=== PATIENT | female | born 1955 | race Caucasian/White ===

== ENCOUNTER 2017-10-17 17:57 | Emergency (ER) | payer OTHER, SELFPAY ==
[2017-10-11 15:39] VITALS: TEMP 36.9
[2017-10-17 20:31] VITALS: BP 119/64; PULSE 68; RESP 18; TEMP 36.9; O2SAT 100; BMI 30.9
== END 2017-10-17 22:03 | disposition left against medical advice (07) ==
PROVIDERS: Family Provider Family Medicine; PCP Family Medicine
DX: S09.90XA Unspecified injury of head, initial encounter (principal)
CPT/HCPCS: 99281; 99282

== ENCOUNTER → 2017-10-18 15:04 | Outpatient (CLI) | payer OTHER, SELFPAY ==
[2017-10-17 20:31] VITALS: TEMP 36.9
--- NOTE | 2017-10-18 | DI.CT.S_ITS ---
PROCEDURE: CT HEAD/BRAIN WO CON INDICATIONS: FALL WITH LOSS OF CONCIOUSNESS TECHNIQUE: Noncontrast 4.5 mm thick angled axial sections acquired from the foramen magnum to the vertex, with coronal and sagittal reformats. For radiation dose reduction, the following was used: automated exposure control, adjustment of mA and/or kV according to patient size. COMPARISON: [facility], CT, HEAD WITHOUT CONTRAST, 06/26/2017, 14:22. FINDINGS: Image quality: Excellent. CSF spaces: Basal cisterns are patent. No extra-axial fluid collections. The ventricles are symmetric in size and shape. Brain: No intracranial bleeds or masses. There is cerebral volume loss for age, with resultant ventricular and sulcal prominence. There are periventricular and deep white matter chronic small vessel ischemic changes. There is intracranial internal carotid artery atherosclerosis. Skull and face: Calvarium and visualized facial bones appear intact, without suspicious lesions. Sinuses: Visualized sinuses and mastoids are clear. IMPRESSION: Normal head CT for age, without findings of acute intracranial hemorrhage or displaced calvarial fractures. Stable from prior. Dictated by: Elder Robledo M.D. on 10/18/2017 at 15:06 Approved by: Elder Robledo M.D. on 10/18/2017 at 15:06
== END ==
PROVIDERS: Family Provider Family Medicine; PCP Family Medicine; Visit Provider Family Medicine
DX: S06.9X9A Unspecified intracranial injury with loss of consciousness of unspecified duration, initial encounter (principal)
CPT/HCPCS: 70450

== ENCOUNTER 2017-12-28 13:30 | Day surgery (SDC) | payer OTHER, SELFPAY ==
--- NOTE | 2017-12-28 14:13 | PM.PREOP ---
Pre-operative Note Interval Note Pre-op Check: Yes History & Physical Reviewed by Physician Changes: No
[2017-12-28] MEDS: CATARACT EYE COMPOUND (10 DROPS/SYRINGE) 3 DROPS EYE-OP (14:19)
[2017-12-28] MEDS: PROPARACAINE 0.5% OPHTH SOL 2 DROPS EYE-OP (14:19)
[2017-12-28 14:22] VITALS: BP 108/72; PULSE 61; RESP 16; TEMP 36.1; O2SAT 99; BMI 32.4
[2017-12-28] MEDS: BALANCED SALT IRRIG SOLN NO.2 15 ML IRRIG.SOLN IRR (15:44)
[2017-12-28] MEDS: HYALURONATE SODIUM 10 MG/ML SYRINGE INJ (15:44)
[2017-12-28] MEDS: CARBACHOL 1.5 ML VIAL INJ (15:44)
[2017-12-28] MEDS: CHONDROIDTIN/SOD HYALURONATE 1.05 ML SYRINGE INTRAOCULA (15:44)
[2017-12-28] MEDS: LIDOCAINE 1% W/EPI INJ 20 ML INJ (15:44)
[2017-12-28] MEDS: OFLOXACIN 0.3% OPHTH 5 ML 2 DROPS EYE-RIGHT (15:45)
[2017-12-28] MEDS: NEOMYCIN/POLY/DEX OPHTH OINT 1 APPLIC EYE-RIGHT (15:45)
[2017-12-28] MEDS: MOXIFLOXACIN OPHTH DROPS 3 ML BOTTLE 2 DROPS INJ (15:45)
[2017-12-28] MEDS: PHENYLEPHRINE/LIDOCAINE 3ML VIAL (OR) EYE-OP (15:46)
[2017-12-28] MEDS: LIDOCAINE 2% 4 ML, BUPIVACAINE 0.5% (PF) 4 ML, HYALURONIDASE 150 UNIT INJ (15:46)
[2017-12-28] MEDS: TRIAMCINOLONE 50 MG/5 ML VIAL INJ (15:46)
[2017-12-28 16:07] VITALS: BP 110/79; PULSE 55; RESP 15; TEMP 36.2; O2SAT 100
--- NOTE | 2017-12-28 16:16 | PM.OP.1 ---
Operative Date/Time/Diagnoses Date of procedure: 12/28/17 Time of procedure: 15:07 Procedure & Clinicians Procedure: Date of service: Preoperative diagnoses: 1. Right nuclear sclerotic Cataract Postoperative diagnoses: 1. Cataract status post surgery with phacoemulsification and posterior chamber intraocular lens implant. Procedure: Phacoemulsification with posterior chamber intraocular lens implant Surgeon: Lani Pederson MD Complications: None Specimen: None Implant:ZCBOO+22.0D Blood loss: None Anesthesia: Retrobulbar with monitored standby Anesthesiologist: Owen Alba Description of procedure: Patient is a female year old with decreased vision due to cataract which is affecting activities of daily living. She wants surgery to improve vision. She was taken to the operating room and given IV sedation. A retrobulbar block insert consisting of 6 cc of 2% xylocaine without epinephrine mixed half and half with 0.5% Marcaine with 1 cc of hyaluronidase added is placed between the medial and lateral 1/3 of the inferior orbital rim. Lid akinesia is obtain with 1% xylocaine with epinephrine infiltrated along the lid margin. The eye is manually massaged for 30 sec, prepped using Betadine solution, and draped in the usual sterile fashion. Temporal approach was made, a 1 mm side-port incision was made at the 7:30 position. Phenylephrine 1.5% mixed with 1% xylocaine 0.2 cc was placed into the anterior chamber. Viscoat followed by Renny was then placed. A 2.6 mm clear incision with a 2.6 mm blade was placed at the 170 degree meridian. She had multiple pupillary strands which were lysed as needed. A 360 degree capsulorrhexis style capsulotomy was then performed with a cystitome needle on a Healon. Hydrodelineation and hydrodissection were performed. The phacoemulsification unit is introduced, and sculpting notice used to groove the central lens. It is then removed in chopping mode. Epi nucleus is removed with epinuclear mode and irrigation aspiration was used to remove the peripheral cortex. The posterior capsule is polished. The intraocular lens is selected, inspected, power confirmed, and placed in the posterior chamber. The pupil was constricted. The wound was strongly hydrated and tested for leaks, there was none and was left sutureless. Vigamox 0.1 cc was placed into the anterior chamber. Kenalog 0.2 cc was placed in the superior subconjunctival space. A drop of antibiotic and was placed and the eye was patched and shielded. The patient was stable and returned to the recovery room in excellent condition. Dictated by: Lani Pederson MD Copy to: [facility] Same procedure as scheduled: Yes
--- NOTE | 2017-12-28 16:22 | PM.PROC.1 ---
Procedures Date/Time Date of procedure: 12/28/17 Time of procedure: 16:22
== END 2017-12-28 16:25 | disposition home or self-care (01) ==
PROVIDERS: Family Provider Family Medicine; PCP Family Medicine; Visit Provider Ophthalmology
DX: H25.11 Age-related nuclear cataract, right eye (principal); F41.9 Anxiety disorder, unspecified; F43.10 Post-traumatic stress disorder, unspecified; I10 Essential (primary) hypertension
CPT/HCPCS: J2250; J2704; J3010; J3301; J3470

== ENCOUNTER 2020-07-04 10:47 | Emergency (ER) | payer MEDICARE, SELFPAY ==
[2020-07-04] VITALS (11 sets, daily range): BP systolic 103–124; BP diastolic 56–69; PULSE 56–62; RESP 15–19; TEMP 36.4; O2SAT 97–99; BMI 31.8
--- NOTE | 2020-07-04 11:03 | ED_ITS ---
HPI - General Adult General Chief complaint: Dizziness Stated complaint: dizzy Time Seen by Provider: 07/04/20 10:47 Source: patient Mode of arrival: Ambulatory Limitations: no limitations History of Present Illness HPI narrative: 64-year-old female sent over from her primary doctor's office for evaluation of approximately 1 week of dizziness. Primary doctor's note states that the patient was complaining of a room spinning sensation however however during my exam she describes as more of an unsteadiness. She denies any other associated symptoms except that she does state that she has been forgetful recently. She states she has been taking all her medications as directed. Has been eating and drinking without problems. Related Data Home Medications Medication Instructions Recorded Confirmed potassium chloride 10 meq PO QDAY #0 06/15/16 06/24/20 valacyclovir 500 mg PO QDAYP PRN #0 06/15/16 06/24/20 Calcium 500 + D (D3) 1 tab PO QDAY 10/11/17 06/24/20 acetaminophen 2 tab PO BID 10/11/17 06/24/20 cholecalciferol (vitamin D3) 2,000 unit PO DAILY 10/11/17 06/24/20 [Vitamin D3] xydousfqapog-xkpahjxr-qmierr 1 tab PO QDAY 10/11/17 06/24/20 [Multivitamin 50 Plus] L-theanine 100 mg PO DAILY 04/06/19 06/24/20 ggmaiwfs-cqrurkttv-zmonikbm 3.5 1 drop EYE-BOTH DAILY ml 04/06/19 06/24/20 mg/mL-10,000 unit/mL-0.1% eye drops metoprolol tartrate 25 mg tablet 25 mg PO DAILY 06/24/20 06/24/20 Previous Rx's Medication Instructions Recorded alprazolam 0.25 mg tablet 0.125 mg PO BEDTIME PRN #30 tab 06/24/20 bupropion HCl 150 mg 24 hr tablet, See Rx Instructions PO QAM #60 tab 06/24/20 extended release escitalopram oxalate 10 mg tablet 10 mg PO DAILY #30 tab 06/24/20 trazodone 50 mg tablet 50 mg PO BEDTIME PRN #30 tab 06/25/20 meclizine 25 mg PO TID PRN #14 tab 07/04/20 Allergies Allergy/AdvReac Type Severity Reaction Status Date / Time gabapentin [GABAPENTIN] AdvReac Mild DIZZY Verified 07/04/20 12:19 midazolam [From VERSED] AdvReac Mild DIDNT WORK Verified 07/04/20 12:19 FOR HER Review of Systems Constitutional Constitutional: Denies chills, Denies fatigue, Denies fever(s), Denies headache(s) and Denies weakness Eyes Eyes: Denies blurry vision, Denies change in vision and Denies loss of vision ENT Ears, Nose, Mouth, and Throat: Denies vertigo, Reports dizziness, Denies headache(s) and Reports disequilibrium Cardiovascular Cardiovascular: Denies chest pain, Denies rapid heart rate and Denies dyspnea Respiratory Respiratory: Denies dyspnea Gastrointestinal Gastrointestinal: Denies abdominal pain, Denies change in bowel habits, Denies nausea and Denies vomiting Genitourinary Genitourinary: Denies dysuria Genitourinary: Denies dysuria Musculoskeletal Musculoskeletal: Denies arthralgias, Denies myalgias and Denies tingling Integumentary/Breasts Skin/Breast: Denies lesions and Denies rash Neurologic Neurologic: Reports confusion, Denies vertigo, Reports dizziness, Denies headache(s), Denies loss of vision, Reports memory loss, Denies tingling, Reports disequilibrium and Denies weakness Psychiatric Psychiatric: Reports confusion and Reports memory loss Endocrine Endocrine: Denies fatigue Hematologic/Lymphatic On Anticoagulants: No Allergic/Immunologic Allergic/Immunologic: Denies urticaria Patient History Medical History Depression Gastric regurgitation Hypertension Social History household members: spouse Smoking Status: Never smoker Smoking Status: Never smoker alcohol intake frequency: holidays/special occasions only Substance Use Type: does not use Exam Initial Vital Signs Initial Vital Signs: Vital Signs Temperature 97.6 F 07/04/20 10:52 Pulse Rate 59 L 07/04/20 10:52 Respiratory Rate 15 07/04/20 10:52 Blood Pressure 124/69 07/04/20 10:52 Pulse Oximetry 97 07/04/20 10:52 Const General: cooperative and comfortable Limitations: mental status not altered HENMT Head: normal to inspection and normocephalic Resp Effort & Inspection: normal respiratory effort Auscultation: clear to auscultation bilaterally Cardio Rate: regular rate Rhythm: regular rhythm GI Inspection: non-distended Palpation: soft Skin Lesions: no lesions Rashes: no rashes Neuro General: patient alert and patient awake Cranial Nerves: CN's II-XI intact bilaterally Cognition: normal cognition Speech: speech normal Gait: normal gait Extrem General: capillary refill normal Psych Appearance: grossly normal and well kempt Scores NIH Stroke Scale Level of Conciousness: Alert, keenly responsive Ask month/age: Answers both questions correctly. Open/close eyes, close hand: Performs both tasks correctly Best gaze horizontal: Normal Visual nova: No visual loss Facial palsy: Normal symetrical movement Left arm drift: No drift for full 10 sec Right arm drift: No drift for full 10 sec Left leg drift: No drift for full 5 sec Right leg drift: No drift for full 5 sec Limb ataxia: Absent Sensory on face/arms/legs: Normal, no sensory loss Best language: No aphasia, normal Dysarthria: Normal Extinction or inattention: No abnormality Total NIH Stroke scale score: 0 Course Orders Ordered: ED Orders 07/04/20 11:00 Complete Blood Count AUTO DIFF Stat Comprehensive Metabolic Panel Stat Lipase Stat Troponin & CK Cardiac Panel Stat 07/04/20 11:04 CT head/brain wo con Stat 07/04/20 11:05 EKG-12 Lead Stat Discontinued Medications Sodium Chloride (Normal Saline 0.9%) 1,000 mls @ 1,000 mls/hr IV BOLUS ONE Stop: 07/04/20 11:51 Last Admin: 07/04/20 11:08 Dose: 1,000 mls/hr Documented by: SHALOM Meclizine HCl (Meclizine Hcl 12.5 Mg Tablet) 25 mg PO NOW ONE Stop: 07/04/20 12:13 Vital Signs Vital signs: Vital Signs - 8 hr 07/04/20 10:52 07/04/20 10:55 07/04/20 11:00 Temperature 97.6 F Pulse Rate 59 L 60 Pulse Rate [Orthostatic Lying] Pulse Rate [Orthostatic Sitting] Pulse Rate [Orthostatic Standing] Respiratory Rate 15 Blood Pressure 124/69 124/69 109/68 Blood Pressure [Orthostatic Lying] Blood Pressure [Orthostatic Sitting] Blood Pressure [Orthostatic Standing] Pulse Oximetry 97 98 07/04/20 11:19 07/04/20 11:24 07/04/20 11:26 Temperature Pulse Rate 59 L 58 L 57 L Pulse Rate [Orthostatic Lying] Pulse Rate [Orthostatic Sitting] Pulse Rate [Orthostatic Standing] Respiratory Rate 18 17 17 Blood Pressure 119/65 106/64 114/56 L Blood Pressure [Orthostatic Lying] Blood Pressure [Orthostatic Sitting] Blood Pressure [Orthostatic Standing] Pulse Oximetry 98 99 99 07/04/20 11:27 07/04/20 11:30 07/04/20 11:31 Temperature Pulse Rate 62 58 L Pulse Rate [Orthostatic Lying] 57 L Pulse Rate [Orthostatic Sitting] 56 L Pulse Rate [Orthostatic Standing] 62 Respiratory Rate 19 19 Blood Pressure 103/67 109/62 Blood Pressure [Orthostatic Lying] 106/64 Blood Pressure [Orthostatic Sitting] 114/56 L Blood Pressure [Orthostatic Standing] 103/67 Pulse Oximetry 98 98 07/04/20 12:00 Temperature Pulse Rate 59 L Pulse Rate [Orthostatic Lying] Pulse Rate [Orthostatic Sitting] Pulse Rate [Orthostatic Standing] Respiratory Rate 16 Blood Pressure 108/68 Blood Pressure [Orthostatic Lying] Blood Pressure [Orthostatic Sitting] Blood Pressure [Orthostatic Standing] Pulse Oximetry 97 Medical Decision Making Lab Data Lab results reviewed: Yes I reviewed the patient's lab results. Result diagrams: 07/04/20 11:00 07/04/20 11:00 Labs: Lab Results 07/04/20 07/04/20 Range/Units 11:00 11:00 WBC 8.4 (4.5-11.0) X10^3/uL RBC 4.51 (4.0-5.2) X10^6/uL Hgb 14.4 (12.0-16.0) g/dL Hct 42.0 (36-46) % MCV 93.2 (80-100) fL MCH 31.9 (26-34) PG MCHC 34.2 (30-36) % RDW 12.7 (11.6-14.8) % Plt Count 221 (150-400) X10^3/uL Neut % (Auto) 63.4 (50-75) % Lymph % (Auto) 19.8 L (25-40) % Mcpherson % (Auto) 11.7 (3-14) % Eos % (Auto) 3.9 (2-4) % Baso % (Auto) 1.2 (0-2) % Neut # (Auto) 5400 (7972-2943) /uL Lymph # (Auto) 1700 (2502-6343) /uL Mcpherson # (Auto) 1000 H (0-900) /uL Eos # (Auto) 300 (0-450) /uL Baso # (Auto) 100 (0-100) /uL Sodium 138 (137-145) mmol/L Potassium 4.3 (3.4-5.1) mmol/L Chloride 102 (98-107) mmol/L Carbon Dioxide 33 H (22-32) mmol/L BUN 16 (7-17) mg/dL Creatinine 1.24 H (0.52-1.04) mg/dL Estimated GFR 43.3 L (>60) mL/min BUN/Creatinine Ratio 12.9 (6-22) Glucose 102 (80-110) mg/dL Calcium 9.4 (8.4-10.2) mg/dL Total Bilirubin 0.5 (0.2-1.3) mg/dL AST 42 H (14-36) IU/L ALT 31 (<35) IU/L Alkaline Phosphatase 52 (38-126) U/L Total Creatine Kinase 69 (30-135) U/L CK-MB (CK-2) TNP CK-MB (CK-2) Rel Index TNP Troponin I < 0.012 (0.01-0.034) ng/mL Total Protein 7.7 (6.3-8.2) g/dL Albumin 4.7 (3.5-5.0) g/dL Globulin 3.0 (1.7-4.1) g/dL Albumin/Globulin Ratio 1.6 (1.0-2.8) Lipase 137 (23-300) U/L Imaging Data CT scan - head: Radiologist's Impression: [address] [id number] Scan ReportSigned Patient: Estrellita Dunbar R#: [id number]: [birth year] 52Acct:[id number]/Sex: 64 / FDate of Service: 07/04/20Loc: EDAccession Number: [id number] Procedure: CT head/brain wo con Ordering Provider: Blake Waldron D.O. PROCEDURE: CT HEAD/BRAIN WO CON INDICATIONS: dizziness TECHNIQUE: Noncontrast 4.5 mm thick angled axial sections acquired from the foramen magnum to the vertex, with coronal and sagittal reformats. For radiation dose reduction, the following was used: automated exposure control, adjustment of mA and/or kV according to patient size. COMPARISON: [facility], CT, CT HEAD/BRAIN WO CON, 10/18/2017, 15:13. FINDINGS: Image quality: Excellent. CSF spaces: Basal cisterns are patent. No extra-axial fluid collections. The ventricles are symmetric in size and shape. Brain: No intracranial bleeds or masses. There is cerebral volume loss for age, with resultant ventricular and sulcal prominence. There are periventricular and deep white matter chronic small vessel ischemic changes. There is intracranial internal carotid artery atherosclerosis. Skull and face: Calvarium and visualized facial bones appear intact, without suspicious lesions. Sinuses: Visualized sinuses and mastoids are clear. IMPRESSION: Unremarkable head CT for patient age. No evidence of acute stroke, hemorrhage, or mass. Dictated by: Jorge Ramírez M.D. on 07/04/2020 at 11:21 Approved by: Jorge Ramírez M.D. on 07/04/2020 at 11:22 ECG Data Attestation: I personally reviewed and interpreted this ECG as follows: Prior ECG tracings: not available for review Interpretation: Sinus bradycardia Ventricular rate of 54 Normal axis Normal QRS QTC [address] T wave changes MDM Narrative Medical decision making narrative: Patient has a normal neurologic exam except for subjective dizziness which she describes as a lightheadedness. She has tinnitus however this is not new for her. The report from her primary doctor's office stated that she was orthostatic and it did show that she had a systolic blood pressure in the 80s at the clinic however she has not been hypotensive since being here in the ER and she is not orthostatic here. Her EKG is unremarkable. Her labs are unremarkable. Head CT is unremarkable. Her symptoms have been going on for the past 2 weeks and have not worsened this time. She has not tried anything for her symptoms. Plan will be is to attempt to see if meclizine will help her symptoms. I do realize that this would be more effective for someone who had defined vertigo which is patient does not have but I feel that trying this medicine would not be harmful and potentially may be helpful. Will have her contact her primary doctor for follow-up to discuss further workup if her symptoms do not improve to include potential MRI versus specialist consultation with ENT or Neurology. Patient was given return precautions and follow-up instructions. She expressed understanding and agreement. Discharge Plan Departure Patient Disposition: Home Clinical Impression: Dizziness Instructions: DI for Dizziness-Nonvertigo Activity Restrictions/Additional Instructions: Recommend that you continue all of your medications as directed. A prescription for meclizine was electronically transmitted to the pharmacy of your choice. Please take it as directed. Contact your primary provider today to schedule a follow-up visit so if the medicine your given today does not improve your symptoms you can discuss further workup to include MRI or specialist referral. Return to the emergency department for any new or worsening symptoms Prescriptions: New meclizine 25 mg tablet 25 mg PO TID PRN (Reason: dizziness) Qty: 14 RF: 0 No Action neomycin-polymyxin B-dexameth 3.5mg/mL-10,000 unit/mL-0.1 % drops,suspension 1 drop EYE-BOTH DAILY RF: 0 L-theanine 100 mg 100 mg PO DAILY RF: 0 metoprolol tartrate 25 mg tablet 25 mg PO DAILY RF: 0 alprazolam 0.25 mg tablet 0.125 mg PO BEDTIME PRN (Reason: sleep) Qty: 30 RF: 1 escitalopram oxalate 10 mg tablet 10 mg PO DAILY Qty: 30 RF: 1 bupropion HCl 150 mg tablet extended release 24 hr See Rx Instructions PO QAM Qty: 60 RF: 1 trazodone 50 mg tablet 50 mg PO BEDTIME PRN (Reason: insomnia) Qty: 30 RF: 2 potassium chloride 10 MEQ capsule, extended release 10 meq PO QDAY Qty: 0 RF: 0 valacyclovir 500 MG tablet 500 mg PO QDAYP PRN (Reason: Cold Sores) Qty: 0 RF: 0 acetaminophen 325 mg Tablet 2 tab PO BID RF: 0 cholecalciferol (vitamin D3) [Vitamin D3] 2,000 unit Capsule 2,000 unit PO DAILY RF: 0 Calcium 500 + D (D3) tablet 1 tab PO QDAY RF: 0 vruryoexpiui-spusprpj-djyzyi [Multivitamin 50 Plus] Tablet 1 tab PO QDAY RF: 0 Referrals: Ophelia Mitchell PA-C [Primary Care Provider] -
[2020-07-04] MEDS: SODIUM CHLORIDE 0.9% 1,000 ML 1000 ML IV (11:08)
[2020-07-04 11:09] LABS: Add Manual Diff / Slide Review NO; Basophils Absolute Auto 100 /uL (0-100); Basophils Percent Auto 1.2 % (0-2); Eosinophils Absolute Auto 300 /uL (0-450); Eosinophils Percent Auto 3.9 % (2-4); Hemoglobin 14.4 g/dL (12.0-16.0); Lymphocytes Absolute Auto 1700 /uL (1100-4500); Lymphocytes Percent Auto 19.8 % (25-40); Mean Corpuscular HGB Conc 34.2 % (30-36); Mean Corpuscular Hemoglobin 31.9 PG (26-34); Mean Corpuscular Volume 93.2 fL (80-100); Monocytes Absolute Auto 1000 /uL (0-900); Monocytes Percent Auto 11.7 % (3-14); Neutrophils Absolute Auto 5400 /uL (1500-7000); Neutrophils Percent Auto 63.4 % (50-75); Platelet Count 221 X10^3/uL (150-400); Red Blood Cell Count 4.51 X10^6/uL (4.0-5.2); Red Cell Distribution Width 12.7 % (11.6-14.8); White Blood Cell Count 8.4 X10^3/uL (4.5-11.0)
[2020-07-04 11:21] LABS: Alanine Aminotransferase 31 IU/L (<35); Albumin 4.7 g/dL (3.5-5.0); Albumin Globulin Ratio 1.6 (1.0-2.8); Alkaline Phosphatase 52 U/L (38-126); Aspartate Aminotransferase 42 IU/L (14-36); BUN Creatinine Ratio 12.9 (6-22); Bilirubin Total 0.5 mg/dL (0.2-1.3); Blood Urea Nitrogen 16 mg/dL (7-17); Calcium 9.4 mg/dL (8.4-10.2); Carbon Dioxide 33 mmol/L (22-32); Chloride 102 mmol/L (98-107); Creatine Kinase 69 U/L (30-135); Estimated Glomerular Filt Rate 43.3 mL/min (>60); Glucose 102 mg/dL (80-110); HEMOLYSIS 15 (0-50); Lipase 137 U/L (23-300); Potassium 4.3 mmol/L (3.4-5.1); Sodium 138 mmol/L (137-145); Total Protein 7.7 g/dL (6.3-8.2)
[2020-07-04 11:33] LABS: Troponin I < 0.012 ng/mL (0.01-0.034)
[2020-07-04] MEDS: MECLIZINE HCL 12.5 MG TABLET 25 MG PO (12:16)
== END 2020-07-04 12:31 | disposition home or self-care (01) ==
PROVIDERS: Emergency Provider Emergency Medicine; Family Provider Family Medicine; PCP Physician Assistant Medical
DX: R42 Dizziness and giddiness (principal); I10 Essential (primary) hypertension; R41.0 Disorientation, unspecified; R00.1 Bradycardia, unspecified
CPT/HCPCS: 36415; 70450; 80053; 82550; 83690; 84484; 85025; 93005; 93010; 96360; 99284

== ENCOUNTER → 2021-03-11 12:28 | Outpatient (CLI) | payer MEDICARE, SELFPAY ==
--- NOTE | 2021-03-11 | DI.US.S_ITS ---
ULTRASOUND OF RIGHT BREAST: 03/11/2021 CLINICAL: Patient returns today to evaluate a focal asymmetry in the right breast. Comparison is made to exams dated: 03/11/2021 mammogram - [facility], 04/23/2020 mammogram, 04/19/2019 mammogram, 10/12/2018 ultrasound, 10/12/2018 mammogram, and 10/05/2018 mammogram - [facility]. Color flow and Doppler ultrasound of the right breast were performed. There is a benign 0.3 cm x 0.3 cm x 0.4 cm oval complicated cyst in the right breast at 9 o'clock posterior depth 3 cm from the nipple. This abnormality is decreased in size. No abnormality which corresponds with the area of pain is identified. IMPRESSION: BENIGN There is no sonographic evidence of malignancy. The 0.3 cm x 0.3 cm x 0.4 cm oval complicated cyst in the right breast is benign. There is no abnormality seen in the right breast to correspond with the area of clinical concern and pain in the superior lateral quadrant, however, clinical correlation is recommended. A 1 year screening mammogram is recommended. This exam was interpreted at Station ID: [id number]. Electronically Signed By: Papi Costa acr/:03/11/2021 14:30:23 letter sent: Clinical Evaluation Ultrasound BI-RADS: 2 Benign
--- NOTE | 2021-03-11 | DI.MG.S_ITS ---
BILATERAL DIGITAL DIAGNOSTIC MAMMOGRAM 3D/2D: 03/11/2021 CLINICAL: Diffuse right breast pain. due for bilateral exam. Comparison is made to exams dated: 04/23/2020 mammogram, 04/19/2019 mammogram, 10/12/2018 mammogram, and 10/12/2018 ultrasound - [facility]. There are scattered fibroglandular elements in both breasts. There are multiple new areas of 5 mm to 1 cm round cysts with a circumscribed margin in the right breast superior lateral quadrant middle depth. No other significant masses, calcifications, or other findings are seen in either breast. IMPRESSION: INCOMPLETE: NEEDS ADDITIONAL IMAGING EVALUATION The multiple new areas of 5 mm to 1 cm round cysts in the right breast are indeterminate. An ultrasound is recommended. This exam was interpreted at Station ID: [id number]. NOTE: For mammograms, a report in lay terms will be sent to the patient. Approximately 15% of breast malignancies will not be visualized mammographically. In the management of a palpable breast mass, a negative mammogram must not discourage biopsy of a clinically suspicious lesion. Electronically Signed By: Papi Csota acr/:03/11/2021 13:06:29 Entry: - 03/12/2021 07:59:30 ACR BI-RADS Category 0: Incomplete [id number]
== END ==
PROVIDERS: Family Provider Family Medicine; PCP Physician Assistant Medical; Referring Provider Physician Assistant Medical; Visit Provider Physician Assistant Medical
DX: R92.8 Other abnormal and inconclusive findings on diagnostic imaging of breast (principal); N64.4 Mastodynia; N60.01 Solitary cyst of right breast
CPT/HCPCS: 76642; 77066; G0279

== ENCOUNTER → 2021-07-01 09:34 | Outpatient (CLI) | payer MEDICARE, SELFPAY ==
--- NOTE | 2021-07-01 | DI.MRI.S_ITS ---
PROCEDURE: MR HEAD/BRAIN WO/W CON INDICATIONS: ORTHOSTATIC DIZZINESS TECHNIQUE: Noncontrast axial T1 spin echo, axial T2 fast spin echo, sagittal and axial FLAIR, coronal T2 fast spin echo, axial gradient echo, axial diffusion and ADC through the brain. After the administration of contrast, axial and coronal T1 spin echo with fat saturation through the brain. COMPARISON: [facility], CT, CT HEAD/BRAIN WO CON, 10/18/2017, 15:13. [facility], CT, CT HEAD/BRAIN WO CON, 07/04/2020, 11:10. FINDINGS: Image quality: Excellent. CSF spaces: Basal cisterns are patent. No extra-axial fluid collections. Ventricles are normal in size and shape. Brain: No midline shift. No intracranial bleeds or masses. No abnormal intracranial enhancement. There is cerebral volume loss for age. There is periventricular white matter chronic small vessel ischemic change. The brainstem appears normal. Diffusion-weighted images demonstrate no acute ischemic insults. No chronic ischemic insults. Normal intravascular flow voids are present. In this patient with this given history, scrutiny is given to cerebellopontine angle cisterns and to the internal auditory canals. To the limits of this standard protocol study, no masses or abnormal enhancement can be seen within these regions. Skull and face: Calvarial marrow is normal in signal. Orbits appear normal. Note is made of bilateral lens replacements. Sinuses: Sinuses and mastoids appear clear. IMPRESSION: No imaging explanation is found for this patient's presenting symptoms. Dictated by: Elder Robledo M.D. on 07/01/2021 at 9:33 Approved by: Elder Robledo M.D. on 07/01/2021 at 9:35
== END ==
PROVIDERS: Family Provider Family Medicine; PCP Physician Assistant Medical; Referring Provider Physician Assistant Medical; Visit Provider Family Medicine
DX: S06.0X1A Concussion with loss of consciousness of 30 minutes or less, initial encounter (principal); R42 Dizziness and giddiness
CPT/HCPCS: 70553

== ENCOUNTER → 2021-10-12 13:29 | Outpatient (CLI) | payer MEDICARE, SELFPAY ==
[2021-10-12 14:28] LABS: COVID19 -Nasal RAPID Negative (Negative)
== END ==
PROVIDERS: Family Provider Family Medicine; PCP Physician Assistant Medical; Visit Provider Surgery
DX: Z01.812 Encounter for preprocedural laboratory examination (principal); Z20.822 Contact with and (suspected) exposure to COVID-19
CPT/HCPCS: 87635; C9803

== ENCOUNTER 2021-10-13 11:29 | Day surgery (SDC) | payer MEDICARE, SELFPAY ==
[2021-10-13] VITALS (9 sets, daily range): BP systolic 110–127; BP diastolic 78–87; PULSE 73–88; RESP 12–17; TEMP 36.5–36.6; O2SAT 93–98; BMI 40.7
--- NOTE | 2021-10-13 | PATH_ITS ---
[facility] Accession Number: [id number] . 01 Material submitted: . colon - TRANSVERSE COLON POLYP . 02 Diagnosis: Transverse Colon, Polyp, Biopsy: Multiple fragments of tubular adenoma. MRV 10/16/2021 0951 Local . 02 Electronically signed: . Mirna Camacho MD, Pathologist NPI- [id number] . 01 Gross description: . TRANSVERSE COLON POLYP: Received in formalin are multiple fragment(s) of bey, soft tissue measuring 1.3 x 0.7 x 0.2 cm in aggregate submitted entirely in 1 cassette(s) /CPE 10/14/2021 0807 Local . 02 Pathologist provided ICD-10: D12.3 . 02 CPT . 886443 Specimen Comment: A courtesy copy of this report has been sent to [phone] Performed at: 01 [facility] Cytology [address] [facility], [place], [place] [id number] MD Raphael Perry MD Phone: [phone] Performed at: 02 [facility] [address] [place], [place] [address] [place], [place] [id number] MD Mirna Camacho MD Phone: [phone]
--- NOTE | 2021-10-13 12:37 | SUR.PREOP ---
Dr Camarena notified in person of patient listed Midazolam allergy didn't work. Pt unable to give further information or history.
[2021-10-13] MEDS: LACTATED RINGERS 1,000 ML 200 ML IV (12:52)
--- NOTE | 2021-10-13 13:32 | PM.HP.1 ---
History of Present Illness History of Present Illness Date Patient Seen: 10/13/21 Time Patient Seen: 13:32 Chief complaint: SD Narrative: The patient presents for colorectal screening. She previous colonoscopy more than 10 years ago which was reportedly normal No personal or family history of colon cancer. On further history denies any recent gastrointestinal symptoms. No nausea, vomiting, abdominal pain, loss of appetite, unexplained weight loss, change in bowel habits, diarrhea, constipation, melena, hematochezia, or bright red blood per rectum. Patient History Medical History Depression Gastric regurgitation Hypertension Family & Social History Social History: household members spouse Tobacco & Substance use: Smoking Status Never smoker alcohol intake current alcohol intake frequency holiday/special occasion Substance Use Type does not use Meds Home Medications and Allergies Home Medications Medication Instructions Recorded Confirmed Type potassium chloride 10 mEq 10 meq PO QDAY #0 06/15/16 10/13/21 History capsule,extended release valacyclovir 500 mg tablet 500 mg PO DAILY #0 06/15/16 10/13/21 History Calcium 500 + D (D3) 1 tab PO QDAY 10/11/17 10/13/21 History acetaminophen 325 mg tablet 2 tab PO BID 10/11/17 10/13/21 History cholecalciferol (vitamin D3) 50 2,000 unit PO DAILY 10/11/17 10/13/21 History mcg (2,000 unit) capsule (Vitamin D3) wetdrwrbxkce-dvebijdv-vdxhwc 1 tab PO QDAY 10/11/17 10/13/21 History tablet (Multivitamin 50 Plus) L-theanine 100 mg PO DAILY 04/06/19 10/13/21 History lwgkpfnn-hgeqdhcov-zelycpwg 3.5 1 drop EYE-BOTH DAILY ml 04/06/19 10/13/21 History mg/mL-10,000 unit/mL-0.1% eye drops metoprolol tartrate 25 mg tablet 25 mg PO DAILY 06/24/20 10/13/21 History meclizine 25 mg tablet 25 mg PO TID PRN #14 tab 07/04/20 10/13/21 Rx alprazolam 0.25 mg tablet 0.125 mg PO BEDTIME PRN #30 tab 02/12/21 10/13/21 Rx bupropion HCl 150 mg 24 hr tablet, 300 mg PO QAM #60 tab 07/23/21 10/13/21 Rx extended release amitriptyline 10 mg tablet 10 mg PO BEDTIME 10/13/21 10/13/21 History omeprazole 20 mg capsule,delayed 20 mg PO DAILY 10/13/21 10/13/21 History release Allergies Allergy/AdvReac Type Severity Reaction Status Date / Time gabapentin [GABAPENTIN] AdvReac Mild DIZZY Verified 10/05/21 15:10 midazolam [From VERSED] AdvReac Mild DIDNT WORK Verified 10/05/21 15:10 FOR HER Exam Vital Signs (past 8 hours): - 10/13/21 12:48 Temperature 97.9 F Pulse Rate 88 Respiratory Rate 16 Blood Pressure 121/86 Pulse Oximetry 98 Oxygen Delivery Method Room Air Narrative Exam Narrative: General adult woman alert oriented no distress Chest nonlabored respirations Extremities warm well perfused Assessment & Plan Assessment & Plan narrative: The patient requires colorectal screening and colonoscopy is recommended. Technical details were discussed. Risks, benefits, alternatives explained. Risks including but not limited to myocardial infarction, aspiration, bleeding, pain, missed lesion, incomplete examination, need for further radiographic studies, colonic perforation, and need for major abdominal surgery were discussed. All questions were answered to their satisfaction, and they are in agreement with this plan. Time Spent With Patient Critical Care time: I spent a total of [] minutes of critical care time on this patient's care today; this time is exclusive of procedural time.
[2021-10-13] MEDS: fentaNYL 250 MCG/5 ML INJ IV (13:53)
[2021-10-13] MEDS: MIDAZOLAM 5 MG/5 ML VIAL IV (13:53)
--- NOTE | 2021-10-13 14:09 | PM.OP.COLON ---
Operative Date/Time/Diagnoses Date of procedure: 10/13/21 Time of procedure: 14:09 Pre-op diagnosis: Screening Post-op diagnosis: same Procedure & Clinicians Study performed: Colonoscopy and polypectomy Same procedure as scheduled: Yes Indications: Screening Surgeon: Gabriele Camarena Procedure Notes Procedure in detail: Medications: Conscious sedation using 4mg IV midazolam and 50mcg IV of fentanyl The history and physical was performed/updated and the patient is ASA class is 3. The procedure was discussed in detail with the patient. Potential risks complications including infection, bleeding, missed diagnosis, perforation, need for surgery, and were explained. Their questions were answered and informed consent was obtained. Patient was brought to the procedure room and placed standard monitoring equipment. The patient's vital signs were monitored continuously throughout the entire procedure. Prior to starting time-out was performed. The patient was placed in the left lateral recumbent position. Procedural sedation was administered. Examination began with a thorough inspection of the perianal area there was no evidence of fissures, fistulae, external hemorrhoids or cutaneous malignancy. The colonoscopy scope was then placed into the anal canal and was advanced to the cecum, which was identified by the ileocecal valve, the appendiceal orifice and the confluence of the taenia. The scope was then slowly withdrawn examining colon thoroughly in all directions, irrigating it of any residual stool. FINDINGS 1. Transverse colon-two 5 mm polyps removed in combination with biopsy forceps and cold snare 2. Tortuous sigmoid colon 3. Diverticulosis The patient tolerated the procedure well. They will be discharged once criteria are met. The prep was of good/excellent quality. The withdrawl time was 6 minutes. The sedation time was 20 minutes. Specimen(s): other (Transverse colon polyps) Complications: none Impression: Colonic polyps Post-procedure Recommendations: High fiber diet Plan for aftercare: Will notify with biopsy results Disposition: same day surgery
== END 2021-10-13 15:10 | disposition home or self-care (01) ==
PROVIDERS: Family Provider Family Medicine; PCP Physician Assistant Medical; Referring Provider Surgery; Visit Provider Surgery
PROC: 0DJD8ZZ Inspection of Lower Intestinal Tract, Via Natural or Artificial Opening Endoscopic (ICD-10-PCS; CPT 45378; principal; 2021-10-13 13:45)
DX: Z12.11 Encounter for screening for malignant neoplasm of colon (principal); I10 Essential (primary) hypertension; K57.30 Diverticulosis of large intestine without perforation or abscess without bleeding; D12.3 Benign neoplasm of transverse colon
CPT/HCPCS: 45385; 45380; 99152; J2250; J3010

== ENCOUNTER → 2021-12-08 11:34 | Outpatient (CLI) | payer MEDICARE, SELFPAY | PROVIDERS: Family Provider Family Medicine; PCP Physician Assistant Medical; Referring Provider Psychiatry & Neurology Psychiatry; Visit Provider Psychiatry & Neurology Psychiatry | DX: F33.2 Major depressive disorder, recurrent severe without psychotic features (principal); G31.84 Mild cognitive impairment of uncertain or unknown etiology; F51.04 Psychophysiologic insomnia; F41.1 Generalized anxiety disorder; R26.89 Other abnormalities of gait and mobility; S09.90XS Unspecified injury of head, sequela; Z79.899 Other long term (current) drug therapy | CPT/HCPCS: 93005; 93010; 99214 ==

== ENCOUNTER → 2024-11-20 11:40 | Outpatient (CLI) | payer MEDICARE, SELFPAY ==
--- NOTE | 2024-11-20 11:43 | DI.MRI.S_ITS ---
PROCEDURE: MR HEAD/BRAIN WO CON INDICATIONS: MEMORY LOSS TECHNIQUE: Non-contrast axial T1 spin echo, axial T2 fast spin echo, sagittal and axial FLAIR, coronal T2 fast spin echo, axial gradient echo, axial diffusion and ADC through the brain. COMPARISON: [facility], MR, MR HEAD/BRAIN WO/W CON, 07/01/2021, 9:57. [facility], CT, CT HEAD/BRAIN WO CON, 07/04/2020, 11:10. FINDINGS: Image quality: Excellent. CSF spaces: Ventricles appear symmetric in size and shape. Basal cisterns are patent. No extra-axial fluid collections. Brain: Bjoo-am-grmmwelb generalized brain parenchymal volume loss can be seen, a more prominent within the temporal lobes than elsewhere. Mild chronic small vessel ischemic change can be seen. No intracranial bleeds or mass effects. Brainstem appears normal. Diffusion- weighted images show no acute infarct. No chronic ischemic insults. Normal intravascular flow voids are present. Skull and face: Calvarial bone marrow is normal in signal. Orbits are normal. Note is made of bilateral lens replacements. Sinuses: Sinuses and mastoids are clear. IMPRESSION: Note is made of age-appropriate brain parenchymal volume loss and chronic small vessel ischemic changes. To the limits of this noncontrast study, no findings of intracranial masses or mass effect can be seen. No findings of acute or subacute infarction can be seen. Dictated by: Elder Robledo M.D. on 11/20/2024 at 12:37 Approved by: Elder Robledo M.D. on 11/20/2024 at 12:39
== END ==
PROVIDERS: PCP Physician Assistant Medical; Referring Provider Physician Assistant Medical; Visit Provider Student in an Organized Health Care Education/Training Program
DX: R41.3 Other amnesia (principal)
CPT/HCPCS: 70551